=== PATIENT | female | born 2000 | race American Indian/Alaskan Native ===

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

== ENCOUNTER 2020-07-25 20:03 | Emergency (ER) | payer MEDICAID ==
[2020-07-25] MEDS ORDERED: MORPHINE 4 MG/1 ML INJ IV ONE (20:43)
[2020-07-25] MEDS ORDERED: SODIUM CHLORIDE 0.9% 1000 ML 1,000 ML IV ONE (20:43)
[2020-07-25] MEDS ORDERED: ONDANSETRON 4 MG/2 ML INJ IV ONE (20:43)
--- NOTE | 2020-07-25 20:51 | Emergency Department Report ---
ED Abdominal Pain HPI - General Chief Complaint: Abdominal Pain Stated Complaint: ABDOMINAL PAIN Time Seen by Provider: 07/25/20 20:43 Source: patient Mode of arrival: Ambulatory Limitations: No Limitations - History of Present Illness Initial Comments: 19-year-old -Brazilian female patient presents with complaints of abdominal pain and nausea and vomiting x3 days. She denies any fever/chills/sweats, cough, shortness of breath, chest pain, diar vikas/constipation, melena/hematochezia, or hematemesis/coffee-ground emesis. She rates her current abdominal pain as a 10/10 in severity. Patient states pain intermittently worsens and seems to be related to greasy food. She denies any previous abdominal surgeries, vaginal bleeding/discharge, dysuria/hematuria, or flank pain. - Related Data Previous Rx's Medication Instructions Recorded Last Taken Type Amoxicillin/K Clav Tab [Augmentin 1 each PO Q12HR #10 tablet 01/01/19 Unknown Rx 500 MG TAB] Ferrous Sulfate [Feosol 325 MG tab] 325 mg PO BID #60 tablet 01/01/19 Unknown Rx Ibuprofen [Motrin 600 MG tab] 600 mg PO Q6HR #30 tablet 01/01/19 Unknown Rx Vit-Fe Fumar-FA [ 1 each PO QDAY #30 tablet 01/01/19 Unknown Rx Vitamin] Metoclopramide [Reglan] 10 mg PO TID PRN #20 tab 07/26/20 Unknown Rx diphenhydrAMINE [Benadryl CAP] 25 mg PO Q8HR PRN #20 capsule 07/26/20 Unknown Rx Allergies Allergy/AdvReac Type Severity Reaction Status Date / Time No Known Allergies Allergy Verified 02/27/18 01:49 ED Review of Systems ROS: Stated complaint: ABDOMINAL PAIN Other details as noted in HPI Constitutional: denies: chills, diaphoresis, fever, malaise, weakness ENT: denies: throat pain Respiratory: denies: cough, shortness of breath Cardiovascular: denies: chest pain Gastrointestinal: abdominal pain, nausea, vomiting. denies: diarrhea, constipation, hematemesis, hematochezia Genitourinary: denies: urgency, dysuria, frequency, hematuria, discharge, abnormal menses, dyspareunia ED Past Medical Hx - Past Medical History Previous Medical History?: No Hx Hypertension: No Hx Congestive Heart Failure: No Hx Diabetes: No Hx Deep Vein Thrombosis: No Hx Renal Disease: No Hx Sickle Cell Disease: No Hx Seizures: No Hx Asthma: No Hx COPD: No Hx HIV: No - Surgical History Past Surgical History?: No - Social History Smoking Status: Never Smoker Substance Use Type: None - Medications Home Medications: Home Medications Medication Instructions Recorded Confirmed Last Taken Type Amoxicillin/K Clav Tab [Augmentin 1 each PO Q12HR #10 tablet 01/01/19 Unknown Rx 500 MG TAB] Ferrous Sulfate [Feosol 325 MG tab] 325 mg PO BID #60 tablet 01/01/19 Unknown Rx Ibuprofen [Motrin 600 MG tab] 600 mg PO Q6HR #30 tablet 01/01/19 Unknown Rx Vit-Fe Fumar-FA [ 1 each PO QDAY #30 tablet 01/01/19 Unknown Rx Vitamin] Metoclopramide [Reglan] 10 mg PO TID PRN #20 tab 07/26/20 Unknown Rx diphenhydrAMINE [Benadryl CAP] 25 mg PO Q8HR PRN #20 capsule 07/26/20 Unknown Rx ED Physical Exam - General Limitations: No Limitations General appearance: alert, in no apparent distress - Head Head exam: Present: atraumatic, normocephalic - Eye Eye exam: Present: normal appearance - ENT ENT exam: Present: normal exam, mucous membranes moist - Neck Neck exam: Present: normal inspection - Respiratory Respiratory exam: Present: normal lung sounds bilaterally. Absent: respiratory distress - Cardiovascular Cardiovascular Exam: Present: regular rate, normal rhythm. Absent: systolic murmur, diastolic murmur, rubs, gallop - GI/Abdominal GI/Abdominal exam: Present: soft, tenderness (Epigastric/periumbilical), guarding. Absent: distended, rebound, rigid - Expanded GI/Abdominal Exam Expanded GI/Abdominal exam: Present: Hall's sign - Extremities Exam Extremities exam: Present: normal inspection - Back Exam Back exam: Present: normal inspection. Absent: CVA tenderness (R), CVA tenderness (L) - Neurological Exam Neurological exam: Present: alert, oriented X3, normal gait - Psychiatric Psychiatric exam: Present: normal affect, normal mood - Skin Skin exam: Present: warm, dry, intact, normal color. Absent: rash, cyanosis, diaphoretic, ecchymosis ED Course Vital Signs 07/25/20 07/26/20 20:08 02:20 Temperature 98.8 F 98.7 F Pulse Rate 73 63 Respiratory 14 16 Rate Blood Pressure 112/62 Blood Pressure 125/63 [Right] O2 Sat by Pulse 98 100 Oximetry ED Medical Decision Making - Lab Data Result diagrams: 07/25/20 20:21 07/25/20 20:21 Lab Results 07/25/20 07/25/20 07/25/20 Range/Units 20:21 20:21 20:21 WBC 9.2 (4.5-11.0) K/mm3 RBC 4.28 (3.65-5.03) M/mm3 Hgb 11.5 (10.1-14.3) gm/dl Hct 34.2 (30.3-42.9) % MCV 80 (79-97) fl MCH 27 L (28-32) pg MCHC 34 (30-34) % RDW 17.2 H (13.2-15.2) % Plt Count 239 (140-440) K/mm3 Lymph % (Auto) 23.3 (13.4-35.0) % [place] % (Auto) 7.5 H (0.0-7.3) % Eos % (Auto) 0.7 (0.0-4.3) % Baso % (Auto) 0.4 (0.0-1.8) % Lymph # (Auto) 2.1 (1.2-5.4) K/mm3 [place] # (Auto) 0.7 (0.0-0.8) K/mm3 Eos # (Auto) 0.1 (0.0-0.4) K/mm3 Baso # (Auto) 0.0 (0.0-0.1) K/mm3 Seg Neutrophils % 68.1 (40.0-70.0) % Seg Neutrophils # 6.2 (1.8-7.7) K/mm3 Sodium 137 (137-145) mmol/L Potassium 3.6 (3.6-5.0) mmol/L Chloride 100.6 (98-107) mmol/L Carbon Dioxide 19 L (22-30) mmol/L Anion Gap 21 mmol/L BUN 8 (7-17) mg/dL Creatinine 0.5 L (0.6-1.2) mg/dL Estimated GFR > 60 ml/min BUN/Creatinine Ratio 16 % Glucose 78 (65-100) mg/dL Calcium 9.4 (8.4-10.2) mg/dL Total Bilirubin 0.40 (0.1-1.2) mg/dL AST 14 (5-40) units/L ALT 7 (7-56) units/L Alkaline Phosphatase 55 (35-129) units/L Total Protein 7.4 (6.3-8.2) g/dL Albumin 4.3 (3.9-5) g/dL Albumin/Globulin Ratio 1.4 % Lipase 14 (13-60) units/L HCG, Qual Positive (Negative) HCG, Quant (0-4) mIU/mL Urine Color (Yellow) Urine Turbidity (Clear) Urine pH (5.0-7.0) Ur Specific [place] (1.003-1.030) Urine Protein (Negative) mg/dL Urine Glucose (UA) (Negative) mg/dL Urine Ketones (Negative) mg/dL Urine Blood (Negative) Urine Nitrite (Negative) Urine Bilirubin (Negative) Urine Urobilinogen (<2.0) mg/dL Ur Leukocyte Esterase (Negative) Urine WBC (Auto) (0.0-6.0) /HPF Urine RBC (Auto) (0.0-6.0) /HPF U Epithel Cells (Auto) (0-13.0) /HPF Urine Bacteria (Auto) (Negative) /HPF Urine Mucus /HPF 07/25/20 07/25/20 Range/Units 20:21 20:42 WBC (4.5-11.0) K/mm3 RBC (3.65-5.03) M/mm3 Hgb (10.1-14.3) gm/dl Hct (30.3-42.9) % MCV (79-97) fl MCH (28-32) pg MCHC (30-34) % RDW (13.2-15.2) % Plt Count (140-440) K/mm3 Lymph % (Auto) (13.4-35.0) % [place] % (Auto) (0.0-7.3) % Eos % (Auto) (0.0-4.3) % Baso % (Auto) (0.0-1.8) % Lymph # (Auto) (1.2-5.4) K/mm3 [place] # (Auto) (0.0-0.8) K/mm3 Eos # (Auto) (0.0-0.4) K/mm3 Baso # (Auto) (0.0-0.1) K/mm3 Seg Neutrophils % (40.0-70.0) % Seg Neutrophils # (1.8-7.7) K/mm3 Sodium (137-145) mmol/L Potassium (3.6-5.0) mmol/L Chloride (98-107) mmol/L Carbon Dioxide (22-30) mmol/L Anion Gap mmol/L BUN (7-17) mg/dL Creatinine (0.6-1.2) mg/dL Estimated GFR ml/min BUN/Creatinine Ratio % Glucose (65-100) mg/dL Calcium (8.4-10.2) mg/dL Total Bilirubin (0.1-1.2) mg/dL AST (5-40) units/L ALT (7-56) units/L Alkaline Phosphatase (35-129) units/L Total Protein (6.3-8.2) g/dL Albumin (3.9-5) g/dL Albumin/Globulin Ratio % Lipase (13-60) units/L HCG, Qual (Negative) HCG, Quant 51704 H (0-4) mIU/mL Urine Color Yellow (Yellow) Urine Turbidity Slightly-cloudy (Clear) Urine pH 5.0 (5.0-7.0) Ur Specific [place] 1.028 (1.003-1.030) Urine Protein 30 mg/dl (Negative) mg/dL Urine Glucose (UA) Neg (Negative) mg/dL Urine Ketones 80 (Negative) mg/dL Urine Blood Neg (Negative) Urine Nitrite Neg (Negative) Urine Bilirubin Neg (Negative) Urine Urobilinogen < 2.0 (<2.0) mg/dL Ur Leukocyte Esterase Neg (Negative) Urine WBC (Auto) 5.0 (0.0-6.0) /HPF Urine RBC (Auto) 5.0 (0.0-6.0) /HPF U Epithel Cells (Auto) 11.0 (0-13.0) /HPF Urine Bacteria (Auto) 1+ (Negative) /HPF Urine Mucus 3+ /HPF - Radiology Data Radiology results: report reviewed ULTRASOUND OBSTETRIC INDICATION / CLINICAL INFORMATION: abdominal pain, new . Clinical Gestational Age (GA): 4.4 weeks.days TECHNIQUE: Transabdominal and Transvaginal. COMPARISON: None available. FINDINGS: GESTATIONAL SAC: Well-defined oval shape and intrauterine in location. YOLK SAC: No significant abnormality. EMBRYO/FETUS: No significant abnormality. - [employer]-Rump Length = 0.27 cm = 5.6 weeks.days - Heart Rate, beats per minute (if present) = 111 ADNEXA: No significant abnormality. FREE FLUID: None. ADDITIONAL FINDINGS: None. IMPRESSION: 1. Single, living intrauterine with estimated sonographic age of 5.6 weeks.days. - Medical Decision Making 19-year-old -Brazilian female patient presents with complaints of abdominal pain and nausea and vomiting x3 days. She denies any fever/chills/sweats, cough, shortness of breath, chest pain, diarrhea/constipation, melena/hematochezia, or hematemesis/coffee-ground emesis. She rates her current abdominal pain as a 10/10 in severity. Patient states pain intermittently worsens and seems to be related to greasy food. She denies any previous abdominal surgeries, vaginal bleeding/discharge, dysuria/hematuria, or flank pain. Generalized abdominal tenderness noted that is worse in the epigastrium/periumbilical/right upper quadrant area. CBC CMP and lipase are normal. UA is normal. Urine test is positive, patient states she was unaware of this. She denies any vaginal bleeding LMP was 06/24/2020 per patient. She is G1, . Right upper quadrant ultrasound shows cholelithiasis without cholecystitis. OB ultrasound shows 5-week 4-day IUP without other abnormalities. Patient informed to follow-up with GI concerning cholelithiasis. She is tolerating fluids p.o. Her vitals are normal and she is well-appearing. Patient stable for discharge home. Prescription for Reglan and Benadryl given for home. Recommend follow-up with [facility] within 3 to 5 days. Strict return precautions were discussed in detail with patient who marcos ortega understanding. Critical care attestation.: If time is entered above; I have spent that time in minutes in the direct care of this critically ill patient, excluding procedure time. ED Disposition Clinical Impression: 5 weeks gestation of , Vomiting Cholelithiases Qualifiers: Cholelithiasis location: gallbladder Cholecystitis presence: without cholecystitis Biliary obstruction: with biliary obstruction Qualified Code(s): K80.21 - Calculus of gallbladder without cholecystitis with obstruction Disposition: TO HOME OR SELFCARE Is pt being admited?: No Condition: Stable Instructions: (ED), Biliary Colic (ED), Cholelithiasis (ED) Prescriptions: diphenhydrAMINE [Benadryl CAP] 25 mg PO Q8HR PRN #20 capsule PRN Reason: Nausea Metoclopramide [Reglan] 10 mg PO TID PRN #20 tab PRN Reason: nausea Referrals: JONAH PEDRO MD [Staff Physician] - 3-5 Days [facility] [Provider Group] - 3-5 Days
[2020-07-25 21:12] LABS: Alanine Aminotransferase 7 units/L (7-56); Albumin 4.3 g/dL (3.9-5); Blood Urea Nitrogen 8 mg/dL (7-17); Calcium 9.4 mg/dL (8.4-10.2); Hemolysis Index 4
[2020-07-25 21:13] LABS: Basophils % (Auto) 0.4 % (0.0-1.8); Eosinophils # (Auto) 0.1 K/mm3 (0.0-0.4); Eosinophils % (Auto) 0.7 % (0.0-4.3); Hematocrit 34.2 % (30.3-42.9); Hemoglobin 11.5 gm/dl (10.1-14.3); Lymphocytes # (Auto) 2.1 K/mm3 (1.2-5.4); Lymphocytes % (Auto) 23.3 % (13.4-35.0); Mean Corpuscular HGB Conc 34 % (30-34); Mean Corpuscular Volume 80 fl (79-97); Monocytes # (Auto) 0.7 K/mm3 (0.0-0.8); Monocytes % (Auto) 7.5 % (0.0-7.3); Platelet Count 239 K/mm3 (140-440); Red Blood Count 4.28 M/mm3 (3.65-5.03); Red Cell Distribution Width 17.2 % (13.2-15.2)
[2020-07-25 21:17] LABS: BUN/Creatinine Ratio 16
[2020-07-25 21:30] LABS: Bacteria,Urine 1+ /HPF (Negative); Bilirubin,Urine NEG (Negative); Blood,Urine NEG (Negative); Color,Urine Yellow (Yellow); Mucus,Urine 3+ /HPF; Urobilinogen,Urine < 2.0 mg/dL (<2.0)
--- NOTE | 2020-07-25 21:57 | Ultrasound Report ---
ULTRASOUND ABDOMEN, LIMITED (RIGHT UPPER QUADRANT) INDICATION / CLINICAL INFORMATION: pain, vomiting. COMPARISON: None available. FINDINGS: PANCREAS: Visualized portion shows no significant abnormality. LIVER: No significant abnormality. GALLBLADDER: Numerous calcified gallstones are noted layering within the gallbladder lumen. The gallb ladder wall measures upper limits of normal at 3 mm. No evidence of pericholecystic fluid. BILE DUCTS: No significant abnormality. Common bile duct measures 1 mm. FREE FLUID: None. ADDITIONAL FINDINGS: None. IMPRESSION: 1. Cholelithiasis with moderate calcified stone burden. No evidence of acute cholecystitis. Signer Name: Drew Chan MD Signed: 07/25/2020 9:53 PM Workstation Name: [email or web address]
[2020-07-25] MEDS ORDERED: METOCLOPRAMIDE 10 MG/2 ML INJ IV ONE (22:48)
[2020-07-25] MEDS ORDERED: diphenhydrAMINE 50 MG/ML VIAL IV ONE (22:48)
[2020-07-25] MEDS ORDERED: METOCLOPRAMIDE 10 MG/2 ML INJ ONE (22:50)
[2020-07-25] MEDS ORDERED: diphenhydrAMINE 50 MG/ML VIAL ONE (22:50)
--- NOTE | 2020-07-26 02:00 | Ultrasound Report ---
ULTRASOUND OBSTETRIC INDICATION / CLINICAL INFORMATION: abdominal pain, new . Clinical Gestational Age (GA): 4.4 weeks.days TECHNIQUE: Transabdominal and Transvaginal. COMPARISON: None available. FINDINGS: GESTATIONAL SAC: Well-defined oval shape and intrauterine in location. YOLK SAC: No significant abnormality. EMBRYO/FETUS: No significant abnormality. - [place]-Rump Length = 0.27 cm = 5.6 weeks.days - Heart Rate, beats per minute (if present) = 111 ADNEXA: No significant abnormality. FREE FLUID: None. ADDITIONAL FINDINGS: None. IMPRESSION: 1. Single, living intrauterine with estimated sonographic age of 5.6 weeks.days. Signer Name: James Pyle MD Signed: 07/26/2020 1:55 AM Workstation Name: [email or web address]
--- NOTE | 2020-07-26 02:00 | Ultrasound Report ---
ULTRASOUND OBSTETRIC INDICATION / CLINICAL INFORMATION: abdominal pain, new . Clinical Gestational Age (GA): 4.4 weeks.days TECHNIQUE: Transabdominal and Transvaginal. COMPARISON: None available. FINDINGS: GESTATIONAL SAC: Well-defined oval shape and intrauterine in location. YOLK SAC: No significant abnormality. EMBRYO/FETUS: No significant abnormality. - [place]-Rump Length = 0.27 cm = 5.6 weeks.days - Heart Rate, beats per minute (if present) = 111 ADNEXA: No significant abnormality. FREE FLUID: None. ADDITIONAL FINDINGS: None. IMPRESSION: 1. Single, living intrauterine with estimated sonographic age of 5.6 weeks.days. Signer Name: James Pyle MD Signed: 07/26/2020 1:55 AM Workstation Name: [email or web address]
[2020-07-26 04:29] VITALS: BP 125/63
== END 2020-07-26 02:30 | disposition home or self-care (01) ==
LOC: ED 20:03
DX: O99.611 Diseases of the digestive system complicating pregnancy, first trimester (principal); O21.8 Other vomiting complicating pregnancy; K80.20 Calculus of gallbladder without cholecystitis without obstruction; Z3A.01 Less than 8 weeks gestation of pregnancy; Z79.1 Long term (current) use of non-steroidal anti-inflammatories (NSAID); Z79.2 Long term (current) use of antibiotics; Z79.899 Other long term (current) drug therapy
CPT/HCPCS: 36415; 76705; 76801; 76817; 80053; 81001; 83690; 84702; 84703; 85025; 96361; 96374; 96375; 99284; J1200; J2270; J2405; J2765; J7030

== ENCOUNTER 2020-07-29 14:12 | Emergency (ER) | payer MEDICAID ==
[2020-07-29 14:34] VITALS: BP 122/63
[2020-07-29] MEDS ORDERED: SODIUM CHLORIDE 0.9% 1000 ML 1,000 ML IV ONE (17:06)
[2020-07-29] MEDS ORDERED: METOCLOPRAMIDE 10 MG/2 ML INJ IV STA (17:06)
[2020-07-29] MEDS ORDERED: diphenhydrAMINE 50 MG/ML VIAL IV STA (17:06)
[2020-07-29] MEDS ORDERED: PYRIDOXINE 50 MG TAB PO STA (17:06)
[2020-07-29 17:50] LABS: Basophils % (Auto) 0.3 % (0.0-1.8); Eosinophils % (Auto) 0.2 % (0.0-4.3); Hematocrit 32.7 % (30.3-42.9); Hemoglobin 11.1 gm/dl (10.1-14.3); Lymphocytes # (Auto) 1.6 K/mm3 (1.2-5.4); Lymphocytes % (Auto) 15.1 % (13.4-35.0); Mean Corpuscular HGB Conc 34 % (30-34); Mean Corpuscular Volume 80 fl (79-97); Monocytes # (Auto) 0.7 K/mm3 (0.0-0.8); Monocytes % (Auto) 6.4 % (0.0-7.3); Platelet Count 234 K/mm3 (140-440); Red Blood Count 4.08 M/mm3 (3.65-5.03); Red Cell Distribution Width 16.7 % (13.2-15.2)
[2020-07-29 18:10] LABS: Alanine Aminotransferase 6 units/L (7-56); Albumin 4.4 g/dL (3.9-5); Blood Urea Nitrogen 4 mg/dL (7-17); Calcium 9.3 mg/dL (8.4-10.2); Hemolysis Index 3
[2020-07-29 18:13] LABS: BUN/Creatinine Ratio 8
--- NOTE | 2020-07-29 19:17 | Emergency Department Report ---
ED General Adult HPI - General Chief complaint: Abdominal Pain Stated complaint: V/N/ BODY PAIN Time Seen by Provider: 07/29/20 17:05 Source: patient Mode of arrival: Ambulatory Limitations: No Limitations - History of Present Illness Initial comments: 19-year-old Bah[place]ian female with a newly found history of gallstones found a few days ago presents emerged department complaining of increasing pain associated with more nausea and vomiting not responding to the Reglan she was sent home on. Ports no hemoptysis no hematemesis no hematochezia no diarrhea no constipation no fever, chills, sweats no chest pain or palpitations. She is not yet followed up with her [facility] [employer] but states she is having no vaginal discharge or vaginal bleeding. She is concerned having a progression in her gallbladder process -: Sudden Location: abdomen Radiation: non-radiation Quality: dull Consistency: constant Improves with: none Worsens with: none Associated Symptoms: denies other symptoms. denies: chest pain, cough, loss of appetite, malaise, nausea/vomiting Treatments Prior to Arrival: none - Related Data Previous Rx's Medication Instructions Recorded Last Taken Type Amoxicillin/K Clav Tab [Augmentin 1 each PO Q12HR #10 tablet 01/01/19 Unknown Rx 500 MG TAB] Ferrous Sulfate [Feosol 325 MG tab] 325 mg PO BID #60 tablet 01/01/19 Unknown Rx Ibuprofen [Motrin 600 MG tab] 600 mg PO Q6HR #30 tablet 01/01/19 Unknown Rx Vit-Fe Fumar-FA [ 1 each PO QDAY #30 tablet 01/01/19 Unknown Rx Vitamin] Metoclopramide [Reglan] 10 mg PO TID PRN #20 tab 07/26/20 Unknown Rx diphenhydrAMINE [Benadryl CAP] 25 mg PO Q8HR PRN #20 capsule 07/26/20 Unknown Rx Doxylamine Succinate/Vit B6 1 each PO BID #20 tablet. 07/29/20 Unknown Rx [Anika Gamboa 10-10 mg Tablet] Allergies Allergy/AdvReac Type Severity Reaction Status Date / Time No Known Allergies Allergy Verified 02/27/18 01:49 ED Review of Systems ROS: Stated complaint: V/N/ BODY PAIN Other details as noted in HPI Comment: All other systems reviewed and negative ED Past Medical Hx - Past Medical History Hx Hypertension: No Hx Congestive Heart Failure: No Hx Diabetes: No Hx Deep Vein Thrombosis: No Hx Renal Disease: No Hx Sickle Cell Disease: No Hx Seizures: No Hx Asthma: No Hx COPD: No Hx HIV: No - Surgical History Past Surgical History?: No - Social History Smoking Status: Never Smoker Substance Use Type: None - Medications Home Medications: Home Medications Medication Instructions Recorded Confirmed Last Taken Type Amoxicillin/K Clav Tab [Augmentin 1 each PO Q12HR #10 tablet 01/01/19 Unknown Rx 500 MG TAB] Ferrous Sulfate [Feosol 325 MG tab] 325 mg PO BID #60 tablet 01/01/19 Unknown Rx Ibuprofen [Motrin 600 MG tab] 600 mg PO Q6HR #30 tablet 01/01/19 Unknown Rx Vit-Fe Fumar-FA [ 1 each PO QDAY #30 tablet 01/01/19 Unknown Rx Vitamin] Metoclopramide [Reglan] 10 mg PO TID PRN #20 tab 07/26/20 Unknown Rx diphenhydrAMINE [Benadryl CAP] 25 mg PO Q8HR PRN #20 capsule 07/26/20 Unknown Rx Doxylamine Succinate/Vit B6 1 each PO BID #20 tablet. 07/29/20 Unknown Rx [Anika Gamboa 10-10 mg Tablet] ED Physical Exam - General Limitations: No Limitations General appearance: alert, in no apparent distress - Head Head exam: Present: atraumatic, normocephalic - Eye Eye exam: Present: normal appearance, PERRL - ENT ENT exam: Present: normal exam, mucous membranes moist - Neck Neck exam: Present: normal inspection, full ROM - Respiratory Respiratory exam: Present: normal lung sounds bilaterally. Absent: respiratory distress, stridor, chest wall tenderness - Cardiovascular Cardiovascular Exam: Present: regular rate, normal rhythm. Absent: bradycardia, tachycardia, systolic murmur, diastolic murmur, rubs, gallop - GI/Abdominal GI/Abdominal exam: Present: soft, tenderness (Medical quadrant and right hypochondriac), normal bowel sounds, other (No changes in the 90s no longer seen no return). Absent: diminished bowel sounds, hyperactive bowel sounds - Extremities Exam Extremities exam: Present: normal inspection - Back Exam Back exam: Present: normal inspection - Neurological Exam Neurological exam: Present: alert, oriented X3 - Psychiatric Psychiatric exam: Present: normal affect, normal mood - Skin Skin exam: Present: warm, dry, intact, normal color. Absent: rash ED Course Vital Signs 07/29/20 14:31 Temperature 99.4 F Pulse Rate 78 Respiratory 16 Rate Blood Pressure 122/63 O2 Sat by Pulse 97 Oximetry ED Medical Decision Making - Lab Data Result diagrams: 07/29/20 17:19 07/29/20 17:19 - Radiology Data Radiology results: report reviewed [facility] [address] [place] [address] Ultrasound Report Signed Patient: DIANE CHAU MR#: [id number] : 2000 Acct:[id number] Age/Sex: 19 / F ADM Date: 07/29/20 Loc: ED Attending Dr: Ordering Physician: FARRUKH ASH Date of Service: 07/29/20 Procedure(s): US abdomen limited Accession Number(s): [id number] cc: FARRUKH ASH ULTRASOUND ABDOMEN, LIMITED (RIGHT UPPER QUADRANT) INDICATION: ruq pain and nausea. COMPARISON: Limited abdominal ultrasound dated 07/25/2020. FINDINGS: Pancreas: Visualized portion shows no significant abnormality. Liver: No significant abnormality. Gallbladder: There is cholelithiasis without evidence of acute cholecystitis. Sonographic Hall's sign: Negative. Bile ducts: No significant abnormality. Common Bile Duct measures 2.1 mm. Free fluid: None. Additional Findings: None. IMPRESSION: Cholelithiasis without sonographic evidence of acute cholecystitis. Signer Name: Spencer Palmer MD Signed: 07/29/2020 7:19 PM Workstation Name: [id number] Transcribed By: MN Dictated By: Spencer Palmer MD Electronically Authenticated By: Spencer Palmer MD Signed Date/Time: 07/29/201918 DD/ 17 TD/TT: - Medical Decision Making This patient presents with abdominal pain of unclear etiology most likely secondary to a biliary colic. Their evaluation has not identified a emergent etiology for the abdominal pain. Specifically, given the very benign exam, normal laboratory studies, and lack of significant risk factors, I have a very low suspicion for appendicitis, ischemic bowel, bowel perforation, or any other life threatening disease. I have discussed with the patient the level of uncertainty with undifferentiated abdominal pain and clearly explained the need to follow-up as noted on the discharge instructions, or return to the Emergency Department immediately if the pain worsens, develops fever, persistent and uncontrollable vomiting, or for any new symptoms or concerns. I discussed with the patient that this presentation today for abdominal pain could represent a significant risk for an acute abdominal process. Although the tests in the ED were essentially normal, there is still a possibility of a process such as appendicitis, diverticulitis, cholecystitis, ulcer, early bowel obstruction, mesenteric ischemia, kidney stone, or even kidney infection which could subsequently cause disability or . The patient understands that they must return within 24 hours for a recheck or see their physician within 24 hours for re-exam due to the possibility of significant surgical or medical process. . Critical care attestation.: If time is entered above; I have spent that time in minutes in the direct care of this critically ill patient, excluding procedure time. ED Disposition Clinical Impression: Cholelithiases, Vomiting Disposition: - TO HOME OR SELFCARE Is pt being admited?: No Does the pt Need Aspirin: No Condition: Stable Instructions: Abdominal Pain (ED), Biliary Colic (ED) Additional Instructions: Please be sure to follow-up with your [facility] and gastroenterology for definitive management of your cold lithiasis. In regards to your nausea please take the provided medication. Referrals: [facility] [Provider Group] - 3-5 Days
--- NOTE | 2020-07-29 19:24 | Ultrasound Report ---
ULTRASOUND ABDOMEN, LIMITED (RIGHT UPPER QUADRANT) INDICATION: ruq pain and nausea. COMPARISON: Limited abdominal ultrasound dated 07/25/2020. FINDINGS: Pancreas: Visualized portion shows no significant abnormality. Liver: No significant abnormality. Gallbladder: There is cholelithiasis without evidence of acute cholecystitis. Sonographic Hall's s ign: Negative. Bile ducts: No significant abnormality. Common Bile Duct measures 2.1 mm. Free fluid: None. Additional Findings: None. IMPRESSION: Cholelithiasis without sonographic evidence of acute cholecystitis. Signer Name: Spencer Palmer MD Signed: 07/29/2020 7:19 PM Workstation Name: [id number]
== END 2020-07-29 20:30 | disposition home or self-care (01) ==
LOC: ED 14:12
DX: K80.80 Other cholelithiasis without obstruction (principal)
CPT/HCPCS: 36415; 76705; 80053; 83690; 85025; 96361; 96374; 96375; 99284; J1200; J2765; J7030

== ENCOUNTER 2021-03-10 22:21 | Inpatient (IN) | payer MEDICAID, OTHER ==
[2021-03-13 16:35] VITALS: BP 154/80
== END 2021-03-13 16:43 | disposition home or self-care (01) | DRG 775 ==
LOC: TRG 22:21 → APU 22:32 → LD 22:53 → TRG 22:53 → OBSVTOIN 22:53 → LD 03-11 00:56 → APU 03-11 00:56 → OB 03-11 03:35
PROVIDERS: ADMIT Obstetrics & Gynecology; ATTEND Obstetrics & Gynecology
PROC: 10E0XZZ Delivery of Products of Conception, External Approach (ICD-10-PCS; principal; 2021-03-11)
DX: O62.3 Precipitate labor (principal); Z3A.39 39 weeks gestation of pregnancy; Z37.0 Single live birth; Z79.899 Other long term (current) drug therapy; O90.81 Anemia of the puerperium; O86.20 Urinary tract infection following delivery, unspecified; Z20.822 Contact with and (suspected) exposure to COVID-19
CPT/HCPCS: 36415; 59025; 80307; 81001; 85014; 85018; 85025; 86592; 86706; 86762; 86803; 86850; 86900; 86901; 87086; 87806; G0378; C9113; J0290; J1750; J1885; J2405; J2590; J7120; Q0169; U0003

== ENCOUNTER 2022-01-19 21:04 | Emergency (ER) | payer OTHER ==
[2022-01-19 21:12] VITALS: BP 140/100
[2022-01-19] MEDS ORDERED: ONDANSETRON 4 MG ODT TAB PO ONE (23:10)
== END 2022-01-20 07:00 | disposition left against medical advice (07) ==
LOC: ED 21:04
DX: R11.2 Nausea with vomiting, unspecified (principal); Z53.21 Procedure and treatment not carried out due to patient leaving prior to being seen by health care provider
CPT/HCPCS: J3490; Q0162